=== PATIENT | female | born 1985 | race Caucasian/White ===

== ENCOUNTER 2017-08-02 11:30 | Emergency (ER) | payer BC, SELFPAY ==
[2017-08-02] MEDS ORDERED: MORPHINE 4 MG/ML SYR ONE (11:37)
[2017-08-02] MEDS ORDERED: ONDANSETRON 4 MG/2 ML VIAL ONE (11:37)
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
[2017-08-02 12:07] LABS: Absolute Lymphocytes (CBC) 0.7 K/uL (0.7-4.9); Absolute Monocytes 0.5 K/uL (0.1-1.3); Absolute Neutrophil 4.6 K/uL (1.8-8.0); Basophils % 0.6 % (0-1.3); Eosinophils % 0.8 % (0-4.4); Hematocrit 36.2 % (36.0-45.0); Lymphocytes % 12.6 % (15.3-44.8); MCH 29.2 pg (27.0-35.0); MCV 85.6 fL (80-100); MPV 8.6 fL (7.6-11.3); RBC Red Blood Cell Count 4.23 M/uL (3.86-4.86)
[2017-08-02 12:12] LABS: Potassium 3.5 mEq/L (3.6-5.0)
[2017-08-02 12:15] LABS: Albumin 4.3 g/dL (3.2-5.5); Bilirubin Total 0.8 mg/dL (0.3-1.2); Protein, Total 7.2 g/dL (6.0-8.3)
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
[2017-08-02 13:45] VITALS: BP 101/61; O2SAT 96
== END 2017-08-02 13:39 | disposition home or self-care (01) ==
LOC: ER 11:30
DX: M54.2 Cervicalgia (principal); M54.5 Low back pain; V94.89XA Other water transport accident, initial encounter; Y93.89 Activity, other specified; Y92.814 Boat as the place of occurrence of the external cause
CPT/HCPCS: 36415; 70450; 71260; 72125; 74177; 80053; 85025; 86850; 86900; 86901; 96374; 96375; 99284; J2405; Q9967